=== PATIENT | female | born 1980 | race African-American/Black ===

== ENCOUNTER → 2019-08-14 | Outpatient (CLI) | payer OTHER ==
--- NOTE | 2019-08-14 16:37 | REP ---
Clinical: Chest pain. Technique: PA and lateral. Comparison: None. Findings: Mediastinum and cardiac silhouette are normal. Subtle increased markings raise the possibility of bronchitis / viral pneumonia and reactive airway disease. No focal consolidation. No effusion. No pneumothorax. Skeletal structures intact. Impression: Cannot exclude bronchitis / viral pneumonia or reactive airway disease. No focal consolidation or effusion. Electronically Signed by Napoleon Harden MD 08/14/2019 04:28 P
== END ==
LOC: M WUC 15:54
PROVIDERS: ATTEND Family Medicine Adult Medicine
DX: Z11.1 Encounter for screening for respiratory tuberculosis (principal); R91.8 Other nonspecific abnormal finding of lung field

== ENCOUNTER → 2019-10-22 | Outpatient (CLI) | payer OTHER ==
[2019-10-22 17:46] LABS: BASO % 0.5 % (0.0-1.0); EOS # 0.1 10^3/uL (0.0-0.5); EOS % 1.8 % (0.0-3.0); HEMATOCRIT 35.2 % (36.0-47.0); HEMOGLOBIN 11.4 g/dl (12.0-15.5); LYMPH # 1.8 10^3/uL (1.5-5.0); LYMPH % 40.7 % (24.0-44.0); MEAN CORPUSCULAR HEMOGLOBIN 29.6 pg (27.0-33.0); MEAN CORPUSCULAR HGB CONC 32.4 g/dl (32.0-36.5); MEAN CORPUSCULAR VOLUME 91.4 fl (80.0-96.0); MONO # 0.7 10^3/uL (0.0-0.8); MONO % 15.8 % (0.0-5.0); NEUTROPHILS # 1.8 10^3/uL (1.5-8.5); PLATELET COUNT, AUTOMATED 201 10^3/uL (150-450); RED BLOOD COUNT 3.85 10^6/uL (4.00-5.40); WHITE BLOOD COUNT 4.4 10^3/uL (4.0-10.0)
[2019-10-22 18:02] LABS: PERCENT SATURATION 24.7 % (13.2-45.0)
[2019-10-22 18:09] LABS: FOLATE 15.9 NG/ML (>5.4)
== END ==
LOC: M LAB 16:06
DX: D50.9 Iron deficiency anemia, unspecified (principal)

== ENCOUNTER → 2020-10-07 | Outpatient (REF) | payer OTHER ==
[2020-10-07 18:21] LABS: BASO % 0.8 % (0.0-1.0); EOS # 0.1 10^3/uL (0.0-0.5); EOS % 1.3 % (0.0-3.0); HEMATOCRIT 34.1 % (36.0-47.0); HEMOGLOBIN 11.1 g/dl (12.0-15.5); LYMPH # 1.5 10^3/uL (1.5-5.0); LYMPH % 41.2 % (24.0-44.0); MEAN CORPUSCULAR HEMOGLOBIN 29.6 pg (27.0-33.0); MEAN CORPUSCULAR HGB CONC 32.6 g/dl (32.0-36.5); MEAN CORPUSCULAR VOLUME 90.9 fl (80.0-96.0); MONO # 0.5 10^3/uL (0.0-0.8); MONO % 13.2 % (2.0-8.0); NEUTROPHILS # 1.6 10^3/uL (1.5-8.5); NEUTROPHILS % 43.2 % (36.0-66.0); PLATELET COUNT, AUTOMATED 227 10^3/uL (150-450); RED BLOOD COUNT 3.75 10^6/uL (4.00-5.40); WHITE BLOOD COUNT 3.7 10^3/uL (4.0-10.0)
[2020-10-07 20:53] LABS: ALBUMIN 3.8 GM/DL (3.2-5.2); ALT/SGPT 39 U/L (12-78); BILIRUBIN,TOTAL 0.4 MG/DL (0.2-1.0); BLOOD UREA NITROGEN 9 MG/DL (7-18); CALCIUM LEVEL 9.7 MG/DL (8.5-10.1); CARBON DIOXIDE LEVEL 25 MEQ/L (21-32); CHLORIDE LEVEL 103 MEQ/L (98-107); CREATININE FOR GFR 0.55 MG/DL (0.55-1.30); FERRITIN 197 NG/ML (8-252); GLOMERULAR FILTRATION RATE > 60.0 (>58); GLUCOSE, FASTING 72 MG/DL (70-100); IRON (FE) 60 UG/DL (50-170); PERCENT SATURATION 19.7 % (13.2-45.0); POTASSIUM SERUM 3.8 MEQ/L (3.5-5.1); SODIUM LEVEL 138 MEQ/L (136-145); THYROID STIMULATING HORMONE 0.941 uIU/ML (0.358-3.740); TOTAL IRON BINDING CAPACITY 305 UG/DL (250-450); TOTAL PROTEIN 7.3 GM/DL (6.4-8.2)
== END ==
LOC: M LAB REF 16:57
PROVIDERS: ATTEND Pediatrics
DX: D50.9 Iron deficiency anemia, unspecified (principal); Z85.6 Personal history of leukemia

== ENCOUNTER → 2020-10-29 | Outpatient (CLI) | payer OTHER ==
--- NOTE | 2020-10-29 12:26 | REP ---
INDICATION: Z12.31 SCREENING MAMMO. COMPARISON: Multiple outside priors the latest 06/28/2018. There are no prior DBT images to review. TECHNIQUE: Digital screening mammography was carried out bilaterally using CC and MLO projections in both 2D and 3D modalities and compared to the prior exams. By history the patient has no complaints of a palpable breast abnormality or other significant breast complaints. FINDINGS: The breasts are unchanged in size and shape. Once again, markedly dense heterogenous somewhat nodular fibroglandular elements are seen bilaterally to such is significant degree that the sensitivity of the mammogram in detecting cancers decreased. In the right breast near the 12 o'clock position there is a potential zak asymmetric density. No other suspicious features are seen in either breast. Benign calcifications are again seen bilaterally. There is no skin thickening or nipple retraction. The Volpara volumetric breast density pattern is D. IMPRESSION: BIRADS/ACR category 0. Right breast finding as described above and for which diagnostic digital magnified spot compression views are recommended in the CC and MLO projections along with diagnostic ultrasonography.. This patient's Tyrer-Cuzick lifetime breast cancer risk assessment score is 12.6%. This mammogram was interpreted with the aid of an FDA-approved computer-aided detection system. The patient states she had a clinical breast exam in over a year. The patient letter being requested is M0. RECOMMENDATION: As above <Electronically signed by Jung Bernstein > 10/29/20 [id number]
== END ==
LOC: M WHC 09:03
PROVIDERS: ATTEND Physician Assistant
DX: Z12.31 Encounter for screening mammogram for malignant neoplasm of breast (principal); N63.15 Unspecified lump in the right breast, overlapping quadrants

== ENCOUNTER → 2020-12-07 | Outpatient (CLI) | payer OTHER ==
[~2020-12-07] MED LIST: IRON65TA2 PO
--- NOTE | 2020-12-07 16:25 | REP ---
INDICATION: ADDITIONAL VIEWS RT BREAST. COMPARISON: Mammogram and ultrasound 06/28/2018. TECHNIQUE: Spot compression magnification views of the right breast are performed. Ultrasound right breast is also performed. FINDINGS: There is a lobulated mass with smooth margins in the 12 o'clock region of the right breast about 2 cm from the nipple. Maximum diameter is 2.7 cm. There are internal calcifications which are coarse, with 4 punctate calcifications also seen. Real-time sonographic evaluation of right breast performed at 12 o'clock. There is a nodule 2.5 x 1.2 x 2.3 cm essentially unchanged compared to the prior ultrasound. With elastography interrogation average KP a value is 87.3. At 11 o'clock there is a 7 mm nodule with an average KP a value 29.8. IMPRESSION: BIRADS/ACR category 2, benign. Lobulated nodule at 12 o'clock right breast is unchanged in size compared to prior ultrasound of 06/28/2018 and contains coarse calcifications, consistent with a fibroadenoma. This mammogram was interpreted with the aid of an FDA-approved computer-aided detection system. The patient letter being requested is M 1. RECOMMENDATION: Repeat screening mammography recommended 1 year (for women over 40). <Electronically signed by Harmeet Leonardo > 12/07/20 0257
== END ==
LOC: M WHC 14:54
PROVIDERS: ATTEND Physician Assistant
DX: D24.1 Benign neoplasm of right breast (principal)

== ENCOUNTER → 2021-01-13 | Outpatient (CLI) | payer OTHER ==
[2021-01-13 19:37] LABS: BASO % 0.7 % (0.0-1.0); EOS # 0.1 10^3/uL (0.0-0.5); EOS % 2.1 % (0.0-3.0); HEMOGLOBIN 11.3 g/dl (12.0-15.5); LYMPH # 1.7 10^3/uL (1.5-5.0); LYMPH % 39.3 % (24.0-44.0); MEAN CORPUSCULAR HEMOGLOBIN 29.3 pg (27.0-33.0); MEAN CORPUSCULAR HGB CONC 32.3 g/dl (32.0-36.5); MEAN CORPUSCULAR VOLUME 90.7 fl (80.0-96.0); MONO # 0.5 10^3/uL (0.0-0.8); MONO % 12.6 % (2.0-8.0); NEUTROPHILS # 1.9 10^3/uL (1.5-8.5); NEUTROPHILS % 44.8 % (36.0-66.0); PLATELET COUNT, AUTOMATED 230 10^3/uL (150-450); RED BLOOD COUNT 3.86 10^6/uL (4.00-5.40); WHITE BLOOD COUNT 4.2 10^3/uL (4.0-10.0)
[2021-01-13 19:52] LABS: ALBUMIN 3.8 GM/DL (3.2-5.2); ALT/SGPT 27 U/L (12-78); BILIRUBIN,TOTAL 0.2 MG/DL (0.2-1.0); BLOOD UREA NITROGEN 11 MG/DL (7-18); CALCIUM LEVEL 9.6 MG/DL (8.5-10.1); CARBON DIOXIDE LEVEL 31 MEQ/L (21-32); CHLORIDE LEVEL 103 MEQ/L (98-107); CREATININE FOR GFR 0.56 MG/DL (0.55-1.30); GLOMERULAR FILTRATION RATE > 60.0 (>58); GLUCOSE, FASTING 74 MG/DL (70-100); IRON (FE) 82 UG/DL (50-170); PERCENT SATURATION 27.9 % (13.2-45.0); POTASSIUM SERUM 4.3 MEQ/L (3.5-5.1); SODIUM LEVEL 138 MEQ/L (136-145); TOTAL IRON BINDING CAPACITY 294 UG/DL (250-450); TOTAL PROTEIN 7.8 GM/DL (6.4-8.2)
[2021-01-18 17:08] LABS: SOLUBLE TRANSFERRIN RECEPTOR 13.1 nmol/L (12.2-27.3)
== END ==
LOC: M LAB 16:52
PROVIDERS: ATTEND Specialist
DX: Z85.6 Personal history of leukemia (principal); D64.9 Anemia, unspecified

== ENCOUNTER → 2021-05-10 | Outpatient (CLI) | payer OTHER ==
[2021-05-10 17:52] LABS: CHOLESTEROL RISK RATIO 2.844 (<5)
== END ==
LOC: M LAB 16:48
PROVIDERS: ATTEND Pediatrics
DX: Z13.220 Encounter for screening for lipoid disorders (principal)

== ENCOUNTER 2021-06-19 12:34 | Emergency (ER) | payer OTHER ==
[~2021-06-19] VITALS: Ht 154.9 cm; Wt 72.7 kg
[2021-06-19] MEDS ORDERED: ACETAMINOPHEN 325 MG TAB PO ONE (13:05)
[2021-06-19] MEDS ORDERED: NS 1,000 ML IV ONE (13:05)
[2021-06-19] MEDS ORDERED: PSEUDOEPHEDRINE 30 MG TAB PO STA (13:05)
[2021-06-19] MEDS ORDERED: OXYMETAZOLINE 0.05% NASAL SPRAY (AFRIN) ONE (13:05)
[2021-06-19 13:35] LABS: BASO % 0.3 % (0.0-1.0); EOS # 0.1 10^3/uL (0.0-0.5); EOS % 1.1 % (0.0-3.0); HEMATOCRIT 34.5 % (36.0-47.0); LYMPH # 0.8 10^3/uL (1.5-5.0); MEAN CORPUSCULAR HEMOGLOBIN 28.6 pg (27.0-33.0); MEAN CORPUSCULAR HGB CONC 31.9 g/dl (32.0-36.5); MEAN CORPUSCULAR VOLUME 89.6 fl (80.0-96.0); MONO # 0.7 10^3/uL (0.0-0.8); MONO % 10.4 % (2.0-8.0); NEUTROPHILS # 4.9 10^3/uL (1.5-8.5); NEUTROPHILS % 74.9 % (36.0-66.0); PLATELET COUNT, AUTOMATED 228 10^3/uL (150-450); RED BLOOD COUNT 3.85 10^6/uL (4.00-5.40); WHITE BLOOD COUNT 6.5 10^3/uL (4.0-10.0)
[2021-06-19 14:07] LABS: ALBUMIN 3.5 GM/DL (3.2-5.2); ALT/SGPT 17 U/L (12-78); BILIRUBIN,DIRECT < 0.1 MG/DL (0.0-0.2); BILIRUBIN,TOTAL 0.4 MG/DL (0.2-1.0); BLOOD UREA NITROGEN 10 MG/DL (7-18); CALCIUM LEVEL 8.8 MG/DL (8.5-10.1); CARBON DIOXIDE LEVEL 29 MEQ/L (21-32); CHLORIDE LEVEL 103 MEQ/L (98-107); CREATININE FOR GFR 0.92 MG/DL (0.55-1.30); GLOMERULAR FILTRATION RATE > 60.0 (>58); GLUCOSE, FASTING 86 MG/DL (70-100); POTASSIUM SERUM 3.9 MEQ/L (3.5-5.1); SODIUM LEVEL 136 MEQ/L (136-145)
[2021-06-19] MEDS ORDERED: DOXY-443 PO (14:26)
[2021-06-19] MEDS ORDERED: PSEU1TAB3 PO (14:26)
[2021-06-19] MEDS ORDERED: DOXYCYCLINE HYCLATE 100MG TABLET PO ONE (14:30)
[2021-06-19 14:52] VITALS: BP 109/60
== END 2021-06-19 14:52 | disposition home or self-care (01) ==
LOC: M ED 12:34
DX: J20.9 Acute bronchitis, unspecified (principal); J32.9 Chronic sinusitis, unspecified; Z88.0 Allergy status to penicillin

== ENCOUNTER 2021-08-01 05:39 | Emergency (ER) | payer OTHER ==
[~2021-08-01] VITALS: Ht 154.9 cm; Wt 77.1 kg
[~2021-08-01 05:39] MED LIST changes: +DOXY-443 PO; +PSEU1TAB3 PO
[2021-08-01] MEDS ORDERED: ACETAMINOPHEN 325 MG TAB PO ONE (07:05)
[2021-08-01 07:41] VITALS: BP 127/69
== END 2021-08-01 07:56 | disposition home or self-care (01) ==
LOC: M ED 05:39
DX: M25.461 Effusion, right knee (principal); S83.411A Sprain of medial collateral ligament of right knee, initial encounter; W01.0XXA Fall on same level from slipping, tripping and stumbling without subsequent striking against object, initial encounter; Y92.018 Other place in single-family (private) house as the place of occurrence of the external cause; Z88.0 Allergy status to penicillin

== ENCOUNTER 2021-09-15 11:10 | Outpatient (RCR) | payer OTHER | END 2021-09-23 | LOC: M PT 11:10 | PROVIDERS: ATTEND Orthopaedic Surgery Hand Surgery | DX: S83.521A Sprain of posterior cruciate ligament of right knee, initial encounter (principal) ==

== ENCOUNTER 2021-10-12 16:00 | Outpatient (RCR) | payer OTHER | END 2021-10-23 | LOC: M PT 16:00 | PROVIDERS: ATTEND Orthopaedic Surgery Hand Surgery | DX: S83.521A Sprain of posterior cruciate ligament of right knee, initial encounter (principal) ==

== ENCOUNTER 2021-11-03 16:00 | Outpatient (RCR) | payer OTHER | END 2021-11-23 | LOC: M PT 16:00 | PROVIDERS: ATTEND Orthopaedic Surgery Hand Surgery | DX: M25.561 Pain in right knee (principal) ==

== ENCOUNTER 2021-12-20 16:45 | Outpatient (RCR) | payer OTHER | END 2021-12-23 | LOC: M PT 16:45 | PROVIDERS: ATTEND Orthopaedic Surgery Hand Surgery | DX: S83.521A Sprain of posterior cruciate ligament of right knee, initial encounter (principal) ==

== ENCOUNTER 2022-01-19 12:11 | Emergency (ER) | payer OTHER ==
[~2022-01-19] VITALS: Ht 154.9 cm; Wt 65.9 kg
[2022-01-19] MEDS ORDERED: BENZONATATE 100MG CAPSULE PO ONE (14:25)
[2022-01-19 14:46] LABS: BASO % 0.5 % (0.0-1.0); EOS # 0.1 10^3/uL (0.0-0.5); EOS % 1.7 % (0.0-3.0); HEMATOCRIT 33.2 % (36.0-47.0); HEMOGLOBIN 10.6 g/dl (12.0-15.5); LYMPH # 1.4 10^3/uL (1.5-5.0); LYMPH % 35.5 % (24.0-44.0); MEAN CORPUSCULAR HEMOGLOBIN 28.4 pg (27.0-33.0); MEAN CORPUSCULAR HGB CONC 31.9 g/dl (32.0-36.5); MONO # 0.7 10^3/uL (0.0-0.8); MONO % 17.1 % (2.0-8.0); NEUTROPHILS # 1.8 10^3/uL (1.5-8.5); NEUTROPHILS % 44.7 % (36.0-66.0); PLATELET COUNT, AUTOMATED 272 10^3/uL (150-450); RED BLOOD COUNT 3.73 10^6/uL (4.00-5.40)
[2022-01-19] MEDS ORDERED: BENZ200C70 PO (15:45)
[2022-01-19] MEDS ORDERED: OXYM15SP2 (15:45)
[2022-01-19 15:52] VITALS: BP 114/65
== END 2022-01-19 15:56 | disposition home or self-care (01) ==
LOC: M ED 12:11
DX: J06.9 Acute upper respiratory infection, unspecified (principal); R09.1 Pleurisy; Z88.0 Allergy status to penicillin

== ENCOUNTER → 2022-04-22 | Outpatient (REF) | payer OTHER ==
[~2022-04-22] MED LIST changes: +BENZ200C70 PO; +OXYM15SP2
[2022-04-22 18:32] LABS: BASO % 0.5 % (0.0-1.0); EOS # 0.1 10^3/uL (0.0-0.5); EOS % 2.1 % (0.0-3.0); HEMATOCRIT 33.1 % (36.0-47.0); HEMOGLOBIN 10.6 g/dl (12.0-15.5); LYMPH # 1.8 10^3/uL (1.5-5.0); MEAN CORPUSCULAR HEMOGLOBIN 28.5 pg (27.0-33.0); MONO # 0.6 10^3/uL (0.0-0.8); NEUTROPHILS # 1.9 10^3/uL (1.5-8.5); NEUTROPHILS % 43.2 % (36.0-66.0); PLATELET COUNT, AUTOMATED 236 10^3/uL (150-450); RED BLOOD COUNT 3.72 10^6/uL (4.00-5.40); WHITE BLOOD COUNT 4.4 10^3/uL (4.0-10.0)
[2022-04-22 19:16] LABS: ALBUMIN 3.5 GM/DL (3.2-5.2); ALT/SGPT 16 U/L (12-78); BILIRUBIN,TOTAL 0.3 MG/DL (0.2-1.0); BLOOD UREA NITROGEN 14 MG/DL (7-18); CALCIUM LEVEL 9.2 MG/DL (8.5-10.1); CARBON DIOXIDE LEVEL 24 MEQ/L (21-32); CHLORIDE LEVEL 106 MEQ/L (98-107); CREATININE FOR GFR 0.64 MG/DL (0.55-1.30); FERRITIN 31 NG/ML (8-252); GLOMERULAR FILTRATION RATE > 60.0 (>58); GLUCOSE, FASTING 90 MG/DL (70-100); IRON (FE) 59 UG/DL (50-170); PERCENT SATURATION 16.3 % (13.2-45.0); POTASSIUM SERUM 4.1 MEQ/L (3.5-5.1); SODIUM LEVEL 135 MEQ/L (136-145); TOTAL IRON BINDING CAPACITY 362 UG/DL (250-450); TOTAL PROTEIN 7.5 GM/DL (6.4-8.2)
== END ==
LOC: M LAB REF 16:36
PROVIDERS: ATTEND Pediatrics
DX: D50.9 Iron deficiency anemia, unspecified (principal); L29.9 Pruritus, unspecified

== ENCOUNTER → 2022-05-04 | Outpatient (CLI) | payer OTHER | LOC: M WHC 13:51 | PROVIDERS: ATTEND Pediatrics | DX: Z12.31 Encounter for screening mammogram for malignant neoplasm of breast (principal) ==